=== PATIENT | female | born 1960 | race Caucasian/White ===

== ENCOUNTER 2017-08-12 14:16 | Emergency (ER) | payer OTHER ==
[~2017-08-12] VITALS: Ht 152.4 cm; Wt 136.1 kg
[2017-08-12 14:23] VITALS: BP 124/64
--- NOTE | 2017-08-12 14:33 | NUR ---
BROUGHT IN BY EMS FROM [facility] FOR POSSIBLE VANCOMYCIN REACTION---REPORTED PT WITH RASH AND ITCHING---- UPON ARRIVAL PT DENIES RASH AND PRURITUS
[2017-08-12] MEDS ORDERED: ONDANSETRON 4 MG/2 ML VIAL IVP ONE (15:35)
[2017-08-12] MEDS ORDERED: MORPHINE SULFATE 4 MG/ML SYR IVP ONE (15:35)
--- NOTE | 2017-08-12 15:50 | NUR ---
attempted to remove clothing pants to assess pt's rle---pt c/o 06/10 pain---md notified analgesic written---given and clothing removed---md to go to bedside---
--- NOTE | 2017-08-12 16:51 | NUR ---
dispo discharge---ambulance transport will be by 1929hrs---pt notified
--- NOTE | 2017-08-12 17:11 | NUR ---
transport eta 1930hrs tonight Patient discharged with v/s stable. Written and verbal after care instructions given and explained. Patient verbalized understanding. [facility] All questions addressed prior to discharge. Advised to follow up with PMD.
--- NOTE | 2017-08-12 18:00 | NUR ---
pt on her cellphone---states pain is tolerable at this time if not moved---denies pruritus continues to wait for transport
--- NOTE | 2017-08-12 19:12 | NUR ---
waiting for transport--no s/s distress
--- NOTE | 2017-08-12 19:13 | NUR ---
Patient discharged with v/s stable. Written and verbal after care instructions given and explained. Patient verbalized understanding. Amb[facility] Transport with to [facility] living. All questions addressed prior to discharge. Advised to follow up with PMD.
[2017-08-12 20:12] VITALS: BP 111/88
--- NOTE | 2017-08-12 20:12 | NUR ---
Patient discharged with v/s stable. Written and verbal after care instructions given and explained. Patient verbalized understanding. Ambulance Transport with [facility] to correction. All questions addressed prior to discharge. Advised to follow up with PMD.
== END 2017-08-12 20:12 ==
LOC: MED 14:16
DX: L27.0 Generalized skin eruption due to drugs and medicaments taken internally (principal); T36.8X5A Adverse effect of other systemic antibiotics, initial encounter; I83.11 Varicose veins of right lower extremity with inflammation; I83.12 Varicose veins of left lower extremity with inflammation; J45.909 Unspecified asthma, uncomplicated; E11.9 Type 2 diabetes mellitus without complications; K21.9 Gastro-esophageal reflux disease without esophagitis; I10 Essential (primary) hypertension; Y92.128 Other place in nursing home as the place of occurrence of the external cause
CPT/HCPCS: 96374; 96375; 99284; J2270; J2405

== ENCOUNTER 2021-02-21 18:11 | Emergency (ER) | payer MEDICAID ==
[~2021-02-21] VITALS: Ht 154.9 cm; Wt 103.0 kg
[2021-02-21 18:11] VITALS: BP 146/83
--- NOTE | 2021-02-21 18:15 | NUR ---
[facility]
--- NOTE | 2021-02-21 18:40 | NUR ---
Taken to CT via [facility]
--- NOTE | 2021-02-21 18:45 | NUR ---
60/F biba from [facility] with c/o headache. Per EMS, patient states she began experiencing sudden 10/10 sharp head pain with unknown cause. Patient denies injury or trauma, denies dizziness or visual changes. Patient is alert and oriented x4, able to answer questions appropriately.
--- NOTE | 2021-02-21 18:49 | NUR ---
Patient returned from CT
[2021-02-21] MEDS ORDERED: KETOROLAC 60 MG/2 ML VIAL IM ONE (19:05)
--- NOTE | 2021-02-21 19:14 | NUR ---
Pt report given to [facility]. Transfer of care at this time.
--- NOTE | 2021-02-21 19:15 | NUR ---
RECIEVED REPORT FROM SOFI RODRIGUES FOR CONTINUITY OF CARE.
--- NOTE | 2021-02-21 19:29 | NUR ---
ERMD AT BEDSIDE.
[2021-02-21] MEDS ORDERED: ONDANSETRON 4 MG ODT PO ONE (19:35)
--- NOTE | 2021-02-21 19:46 | NUR ---
SPOKE WITH [facility], UPDATED REGARDING PT RETURNING TO FACILITY, ETA 1 HOUR.
[2021-02-21] MEDS ORDERED: ONDA8TAB87 PO (19:47)
[2021-02-21] MEDS ORDERED: CIPR500T4 PO (19:47)
--- NOTE | 2021-02-21 20:11 | NUR ---
PT DENIES NAUSEA AT THIS TIME. PT REPOSITION FOR COMFORT.
[2021-02-21 20:48] VITALS: BP 137/65
--- NOTE | 2021-02-21 20:48 | NUR ---
Patient discharged with v/s stable. Written and verbal after care instructions given and explained. Patient alert, oriented and verbalized understanding of instructions. [facility] [place] [facility] [place] All questions addressed prior to discharge. ID band removed. Patient advised to follow up with PMD. Rx of CIPRO AND ZOFRAN given. Patient educated on indication of medication including possible reaction and side effects. Opportunity to ask questions provided and answered.
== END 2021-02-21 20:48 ==
LOC: MED 18:11
DX: R51.9 Headache, unspecified (principal); N39.0 Urinary tract infection, site not specified; J45.909 Unspecified asthma, uncomplicated; E11.9 Type 2 diabetes mellitus without complications; K21.9 Gastro-esophageal reflux disease without esophagitis; E07.9 Disorder of thyroid, unspecified; I10 Essential (primary) hypertension
CPT/HCPCS: 70450; 81002; 87086; 96372; 99285; J1885; Q0162